=== PATIENT | female | born 1985 | race Caucasian/White ===

== ENCOUNTER 2017-10-05 20:10 | Emergency (ER) | payer OTHER ==
[~2017-10-05] VITALS: Ht 177.8 cm; Wt 77.5 kg
[2017-10-05 20:37] LABS: HEMATOCRIT 39.1 % (36.0-46.0); HEMOGLOBIN 13.2 G/DL (11.9-15.5); MCH 30.3 PG (29.0-34.0); MCHC 33.8 G/DL (30.0-36.0); MCV 89.7 FL (83-99); PLATELET COUNT 270 K/uL (156-360); RBC DIS.WIDTH-CV 12.1 % (11.8-14.6); RED BLOOD COUNT 4.36 M/uL (3.80-5.20)
[2017-10-05 20:45] LABS: ALBUMIN 4.2 g/dL (3.2-4.8)
[2017-10-05 20:46] LABS: CHLORIDE 107 mEq/L (99-109); POTASSIUM 3.9 mEq/L (3.7-5.4); SODIUM 141 mEq/L (136-147)
[2017-10-05 20:48] LABS: GLUCOSE 96 mg/dL (70-99); TOTAL PROTEIN 7.1 g/dL (6.4-8.3)
[2017-10-05 20:50] LABS: TOTAL BILIRUBIN 0.4 mg/dL (0.0-1.0)
[2017-10-05 20:51] LABS: ALKALINE PHOSPHATASE 83 IU/L (3-129)
[2017-10-05 20:52] LABS: CREATININE 0.8 mg/dL (0.6-1.3); GFR ESTIMATE (CALCULATED) > 59 mL/min/
[2017-10-05 20:53] LABS: AST (GOT) 14 IU/L (2-34); UREA NITROGEN (BUN) 12 mg/dL (9-23)
[2017-10-05 20:55] LABS: ALT (GPT) 12 IU/L (3-49)
[2017-10-05 21:00] LABS: QUANTITATIVE HCG < 4.0 MIU/ML
[2017-10-06] MEDS ORDERED: AUGMENTIN875 MG PO (00:55)
[2017-10-06 01:03] LABS: APPEARANCE CLEAR ((CLEAR)); BILIRUBIN NEGATIVE; BLOOD SMALL; COLOR STRAW ((YELLOW)); GLUCOSE (STRIP) NEGATIVE; KETONES NEGATIVE; LEUKOCYTES NEGATIVE; NITRITE NEGATIVE; PROTEIN (STRIP) NEGATIVE; SPECIFIC GRAVITY 1.008 (1.000-1.030); UROBILINOGEN 0.2 MG/DL (0.2-1.0)
[2017-10-06 01:04] VITALS: BP 140/70
[2017-10-06 01:06] LABS: BACTERIA RARE /HPF; EPITHELIAL CELLS RARE /HPF; MUCUS TRACE /LPF; RED BLOOD CELLS 0-5 /HPF (0-5); UCUL ADDED? NO; WHITE BLOOD CELLS 0-5 /HPF (0-5)
== END 2017-10-06 01:05 | disposition home or self-care (01) ==
LOC: EME 20:10
DX: N93.9 Abnormal uterine and vaginal bleeding, unspecified (principal); J32.9 Chronic sinusitis, unspecified; R05 Cough; R10.9 Unspecified abdominal pain
CPT/HCPCS: 76856; 80053; 81003; 84702; 85027; 99281; 99284